=== PATIENT | female | born 1985 | race Two or more races ===

== ENCOUNTER 2025-07-08 19:01 | Emergency (ER) | payer MEDICAID, OTHER ==
[~2025-07-08] VITALS: Ht 167.6 cm; Wt 66.1 kg
[2025-07-08 20:49] VITALS: BP 125/71; PULSE 67; RESP 20; TEMP 98.3
[2025-07-08] MEDS: KETOROLAC TROMETH 60MG/2ML VIAL IM ONE (20:51)
[2025-07-08] MEDS: LIDOCAINE 5% TOPICAL PATCH TOP ONE (20:52)
[2025-07-08] MEDS: ACETAMINOPHEN 325 MG TAB PO ONE (20:52)
[2025-07-08 21:00] VITALS: O2SAT 98
[2025-07-08] MEDS ORDERED: LIDO4PAD52 EX (21:08)
[2025-07-08] MEDS ORDERED: IBUP-1456 PO (21:08)
[2025-07-08] MEDS ORDERED: CYCL-837 PO (21:08)
[2025-07-08] MEDS ORDERED: ACET-6 PO (21:08)
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
== END 2025-07-08 21:39 | disposition home or self-care (01) ==
LOC: ER 19:04
DX: M62.830 Muscle spasm of back (principal); M54.50 Low back pain, unspecified; V43.52XA Car driver injured in collision with other type car in traffic accident, initial encounter; Y93.I9 Activity, other involving external motion; Y92.488 Other paved roadways as the place of occurrence of the external cause; Y99.8 Other external cause status
CPT/HCPCS: 96372; 99283; J1885